=== PATIENT | female | born 1990 | race Caucasian/White ===

== ENCOUNTER → 2016-06-02 | Outpatient (CLI) | payer MEDICAID | LOC: MW.CHRC 13:27 | PROVIDERS: ATTEND Family Medicine | DX: N92.6 Irregular menstruation, unspecified (principal) | CPT/HCPCS: 36415; 84702 ==

== ENCOUNTER 2016-06-07 11:34 | Emergency (ER) | payer MEDICAID ==
--- NOTE | 2016-06-07 11:59 | EDM.PDOC ---
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 Patient indicates that she noticed vaginal bleeding after voiding this morning and when she wiped it was on the toilet paper and it was dark old blood. Patient indicates that she recently saw her OB and she was determined to be approximately 6 weeks . Patient denies cramping or or any abdominal pain at this time.] Review of systems: As per history of present illness and below otherwise all systems reviewed and negative. Past medical history: As per history of present illness and as reviewed below otherwise noncontributory. Surgical history: As per history of present illness and as reviewed below otherwise noncontributory. Social history: No reported history of drug or alcohol abuse. Family history: As per history of present illness and as reviewed below otherwise noncontributory. Physical exam: HEENT: Atraumatic, normocephalic, pupils reactive, negative for conjunctival pallor or scleral icterus, mucous membranes moist, throat clear, neck supple, nontender, trachea midline. Lungs: Clear to auscultation, breath sounds equal bilaterally, chest nontender. Heart: S1S2, regular, negative for clicks, rubs, or JVD. Abdomen: Soft, nondistended, nontender. Negative for masses or hepatosplenomegaly. Negative for costovertebral tenderness. Pelvis: Stable nontender. Genitourinary: Deferred. Rectal: Deferred. Extremities: Atraumatic, negative for cords or calf pain. Neurovascular unremarkable. Neuro: Awake, alert, oriented. Cranial nerves II through XII unremarkable. Cerebellum unremarkable. Motor and sensory unremarkable throughout. Exam nonfocal. Diagnostics: [CBC CMP Rh, HCG quantitative, hCG qualitative, UA transvaginal ultrasound] Therapeutics: [] Impression: [Threatened ] Plan: [Pelvic rest for 6 weeks, followup with primary care/OB] Definitive disposition and diagnosis as appropriate pending reevaluation and review of above. no pain Pain Score (Numeric/FACES): 0 - Related Data Allergies Allergy/AdvReac Type Severity Reaction Status Date / Time No Known Allergies Allergy Verified 06/07/16 11:44 Home Meds: Home Meds B6/FA/B12/Co Q10/Herb No.225 [Healthy Heart Complex Tablet] 25 mg PO Q6HR [History] Methadone 5 mg PO TID 06/07/16 [History] Vit #108/Iron/FA [ One Tablet] 1 tab PO DAILY 06/07/16 [History ] oxyCODONE HCl/Acetaminophen [Percocet 7.5-325 mg Tablet] 1 tab PO Q6HR 06/07/16 [History] ED ROS GENERAL - Review of Systems Review Of Systems: See Below (See history of present illness) ED EXAM, GENERAL - Physical Exam Exam: See Below (See history of present illness) Course - Vital Signs Last Recorded V/S: Last Vital Signs Temp 36.9 C 06/07/16 11:46 Pulse 70 06/07/16 11:46 Resp 16 06/07/16 11:46 BP 131/90 06/07/16 11:46 Pulse Ox 98 06/07/16 11:46 - Orders/Labs/Meds Orders: Active Orders 24 hr Category Date Time Status CULTURE URINE [RM] Stat Lab 06/07/16 13:50 Received UA W/MICROSCOPIC [URIN] Stat Lab 06/07/16 13:50 Results Labs: Laboratory Tests 06/07/16 06/07/16 06/07/16 Range/Units 11:57 11:57 11:57 WBC 11.23 H (4.0-11.0) K/uL RBC 4.57 (4.30-5.90) M/uL Hgb 13.4 (12.0-16.0) g/dL Hct 39.7 (36.0-46.0) % MCV 86.9 (80.0-98.0) fL MCH 29.3 (27.0-32.0) pg MCHC 33.8 (31.0-37.0) g/dL RDW Std Deviation 39.2 (28.0-62.0) fl RDW Coeff of Francie 12 (11.0-15.0) % Plt Count 269 (150-400) K/uL MPV 9.50 (7.40-12.00) fL Neut % (Auto) 62.1 (48.0-80.0) % Lymph % (Auto) 32.0 (16.0-40.0) % [place] % (Auto) 4.8 (0.0-15.0) % Eos % (Auto) 0.7 (0.0-7.0) % Baso % (Auto) 0.4 (0.0-1.5) % Neut # (Auto) 7.0 H (1.4-5.7) K/uL Lymph # (Auto) 3.6 H (0.6-2.4) K/uL [place] # (Auto) 0.5 (0.0-0.8) K/uL Eos # (Auto) 0.1 (0.0-0.7) K/uL Baso # (Auto) 0.0 (0.0-0.1) K/uL Nucleated RBC % 0.0 /100WBC Nucleated RBCs # 0 K/uL HCG, Quant 220765.1 mIU/mL Urine Color Urine Appearance Urine pH (5.0-8.0) Ur Specific [place] (1.001-1.035) Urine Protein (NEGATIVE) mg/dL Urine Glucose (UA) (NEGATIVE) mg/dL Urine Ketones (NEGATIVE) mg/dL Urine Occult Blood (NEGATIVE) Urine Nitrite (NEGATIVE) Urine Bilirubin (NEGATIVE) Urine Urobilinogen (<2.0) EU/dL Ur Leukocyte Esterase (NEGATIVE) Blood Type O POSITIVE 06/07/16 Range/Units 13:50 WBC (4.0-11.0) K/uL RBC (4.30-5.90) M/uL Hgb (12.0-16.0) g/dL Hct (36.0-46.0) % MCV (80.0-98.0) fL MCH (27.0-32.0) pg MCHC (31.0-37.0) g/dL RDW Std Deviation (28.0-62.0) fl RDW Coeff of Francie (11.0-15.0) % Plt Count (150-400) K/uL MPV (7.40-12.00) fL Neut % (Auto) (48.0-80.0) % Lymph % (Auto) (16.0-40.0) % [place] % (Auto) (0.0-15.0) % Eos % (Auto) (0.0-7.0) % Baso % (Auto) (0.0-1.5) % Neut # (Auto) (1.4-5.7) K/uL Lymph # (Auto) (0.6-2.4) K/uL [place] # (Auto) (0.0-0.8) K/uL Eos # (Auto) (0.0-0.7) K/uL Baso # (Auto) (0.0-0.1) K/uL Nucleated RBC % /100WBC Nucleated RBCs # K/uL HCG, Quant mIU/mL Urine Color YELLOW Urine Appearance CLEAR Urine pH 7.0 (5.0-8.0) Ur Specific [place] 1.010 (1.001-1.035) Urine Protein NEGATIVE (NEGATIVE) mg/dL Urine Glucose (UA) NEGATIVE (NEGATIVE) mg/dL Urine Ketones NEGATIVE (NEGATIVE) mg/dL Urine Occult Blood NEGATIVE (NEGATIVE) Urine Nitrite NEGATIVE (NEGATIVE) Urine Bilirubin NEGATIVE (NEGATIVE) Urine Urobilinogen 0.2 (<2.0) EU/dL Ur Leukocyte Esterase NEGATIVE (NEGATIVE) Blood Type Departure - Departure Time of Disposition: 14:14 Disposition: Home, Self-Care 01 Condition: good Clinical Impression: Threatened Forms: ED Department Discharge Additional Instructions: The following information is given to patients seen in the emergency department who are being discharged to home. This information is to outline your options for follow-up care. We provide all patients seen in our emergency department with a follow-up referral. The need for follow-up, as well as the timing and circumstances, are variable depending upon the specifics of your emergency department visit. If you don't have a primary care physician on staff, we will provide you with a referral. We always advise you to contact your personal physician following an emergency department visit to inform them of the circumstance of the visit and for follow-up with them and/or the need for any referrals to a consulting specialist. The emergency department will also refer you to a specialist when appropriate. This referral assures that you have the opportunity for follow-up care with a specialist. All of these measure are taken in an effort to provide you with optimal care, which includes your follow-up. Under all circumstances we always encourage you to contact your private physician who remains a resource for coordinating your care. When calling for follow-up care, please make the office aware that this follow-up is from your recent emergency room visit. If for any reason you are refused follow-up, please contact the [facility] Emergency Department at and asked to speak to the emergency department charge nurse. Followup with PCP in one to 2 days Pelvic rest for 6 weeks Return to ED as needed as discussed - My Orders Last 24 Hours: My Active Orders 06/07/16 13:50 CULTURE URINE [RM] Stat UA W/MICROSCOPIC [URIN] Stat - Assessment/Plan Last 24 Hours: My Active Orders 06/07/16 13:50 CULTURE URINE [RM] Stat UA W/MICROSCOPIC [URIN] Stat
--- NOTE | 2016-06-07 12:50 | US ---
EXAMINATION: Transvaginal ultrasound HISTORY: Bleeding COMPARISON: None TECHNIQUE: Grayscale, color Doppler, spectral Doppler, and M-mode images obtained transvaginally. FINDINGS: There is a twin intrauterine identified. Please appear to have separate gestatio nal sacs. Twin A which is noted on the maternal right demonstrates a heart rate of 136 bpm. The little traverse n-rump length measures 0.7 cm giving an estimated gestational age at 6 weeks and 4 days and estimate d date of delivery at 01/27/2017. Twin B demonstrates a pole and yolk sac however definite car diac activity is not identified. The crown-rump length of twin B measures 0.46 cm giving an estimate d gestational age at 6 weeks and 2 days. There is a minimal hypoechoic crescent adjacent to the gest ational sac of twin B which could represent a minimal subchorionic hemorrhage. IMPRESSION: 1. Twin intrauterine . 2. Twin A, demonstrates a normal heart rate. No definite cardiac activity is yet identified within t win B. Short-term follow-up may be beneficial.
[2016-06-07 14:40] VITALS: BP 108/66
== END 2016-06-07 14:38 | disposition home or self-care (01) ==
LOC: MW.ED 11:34
DX: O20.0 Threatened abortion (principal); Z79.899 Other long term (current) drug therapy
CPT/HCPCS: 36415; 76801; 76801-26; 81001; 84702; 85025; 86900; 86901; 87086; 99283; 99284-25

== ENCOUNTER 2016-06-17 21:05 | Emergency (ER) | payer MEDICAID ==
--- NOTE | 2016-06-17 21:37 | EDM.PDOC ---
ED HPI ENT - General Chief Complaint: ENT Problem Stated Complaint: PT HAS SORE THROAT,RUNNING NOSE Time Seen by Provider: 06/17/16 21:20 Source of Information: Reports: Patient History Limitations: Reports: No limitations - History of Present Illness INITIAL COMMENTS - FREE TEXT/NARRATIVE: HISTORY AND PHYSICAL: History of present illness: [Patient comes to the emergency room complaining of runny nose cough and sore throat since last night. 2 coworkers have recently been diagnosed with mono. patient is concerned that she may accidentally drank out of one of her water bottles and she may also have it. Throat is very sore. Her sinuses feel full and she is having difficulty breathing out of her nose. Green nasal discharge has been present. She denies earaches, neck pain, and shortness of breath. No headaches. Her worst symptom is her sore throat. She would like to be tested for mono. No abdominal pain, nausea or vomiting. She is approximately 9 weeks with twins. This is her first . LMP April 18 2016. She isn' t sure which bnec-bnt-birspib medications she is allowed to take while . She follows regularly with Dr. Sharp. History of back surgery for scoliosis.] Review of systems: As per history of present illness and below otherwise all systems reviewed and negative. Past medical history: As per history of present illness and as reviewed below otherwise noncontributory. Surgical history: As per history of present illness and as reviewed below otherwise noncontributory. Social history: No reported history of drug or alcohol abuse. Family history: As per history of present illness and as reviewed below otherwise noncontributory. Physical exam: HEENT: Atraumatic, normocephalic. TMs are pearly luo and without effusion bilaterally. Nares are patent. Small amount of nasal discharge present bilaterally. mucous membranes moist. Posterior oropharynx is erythematous but no swelling or exudate is noted. Mildly shoddy and tender left anterior cervical lymph nodes. neck supple. Lungs: Clear to auscultation, breath sounds equal bilaterally, chest nontender. No wheezing crackles or rales. Heart: S1S2, regular rate rhythm. negative for clicks, rubs, or JVD. Abdomen: Soft, nondistended, nontender. Pelvis: Stable nontender. Genitourinary: Deferred. Rectal: Deferred. Extremities: Atraumatic, no swelling or cyanosis. Neurovascular unremarkable. Neuro: Awake, alert, oriented. Cranial nerves II through XII unremarkable. Motor and sensory unremarkable throughout. Exam nonfocal. Diagnostics: [[place], strep swab] Impression: [Viral cold] Plan: [Test results are reviewed with patient: Strep swab is negative. [place] screen is negative. Discussed with patient that her symptoms are viral in nature. She is to push fluids get plenty of rest. Followup with her primary care or be for recommendations on other [id number]-[id number] medications that she can take. ] Definitive disposition and diagnosis as appropriate pending reevaluation and review of above. - Related Data Allergies/ADRs: Allergies Allergy/AdvReac Type Severity Reaction Status Date / Time No Known Allergies Allergy Verified 06/17/16 21:19 Home Meds: Home Meds B6/FA/B12/Co Q10/Herb No.225 [Healthy Heart Complex Tablet] 25 mg PO Q6HR [History] Methadone 5 mg PO TID 06/07/16 [History] Vit #108/Iron/FA [ One Tablet] 1 tab PO DAILY 06/07/16 [History ] oxyCODONE HCl/Acetaminophen [Percocet 7.5-325 mg Tablet] 1 tab PO Q6HR 06/07/16 [History] Past Medical History HEENT History: Reports: None Cardiovascular History: Reports: None Respiratory History: Reports: None Gastrointestinal History: Reports: None Genitourinary History: Reports: None INDUSTRIAL ENG History: Reports: Musculoskeletal History: Reports: None Neurological History: Reports: None Psychiatric History: Reports: Anxiety Endocrine/Metabolic History: Reports: None Hematologic History: Reports: None Oncologic (Cancer) History: Reports: None Dermatologic History: Reports: None - Infectious Disease History Infectious Disease History: Reports: Human papilloma virus (HPV) Social & Family History - Family History Family Medical History: Noncontributory - Tobacco Use Smoking Status *Q: Current Every Day Smoker Years of Tobacco use: 10 Packs/Tins Daily: 0.5 - Caffeine Use Caffeine Use: Reports: None - Recreational Drug Use Recreational Drug Use: No ED ROS ENT - Review of Systems Review Of Systems: ROS reveals no pertinent complaints other than HPI. ED EXAM, ENT - Physical Exam Exam: See Below Course - Vital Signs Last Recorded V/S: Last Vital Signs Temp 97.6 F 06/17/16 21:20 Pulse 63 06/17/16 21:20 Resp 18 06/17/16 21:20 BP 135/73 06/17/16 21:20 Pulse Ox 98 06/17/16 21:20 - Orders/Labs/Meds Orders: Active Orders 24 hr Category Date Time Status CULTURE STREP A CONFIRMATION [RM] Stat Lab 06/17/16 21:42 Results STREP SCRN A RAPID W CULT CONF [RM] Stat Lab 06/17/16 21:42 Results Labs: Laboratory Tests 06/17/16 Range/Units 21:47 Monoscreen NEGATIVE (NEG) Departure - Departure Time of Disposition: 22:15 Disposition: Home, Self-Care 01 Condition: good Clinical Impression: Common cold virus Referrals: PCP,None [Primary Care Provider] - Forms: ED Department Discharge Additional Instructions: The following information is given to patients seen in the emergency department who are being discharged to home. This information is to outline your options for follow-up care. We provide all patients seen in our emergency department with a follow-up referral. The need for follow-up, as well as the timing and circumstances, are variable depending upon the specifics of your emergency department visit. If you don't have a primary care physician on staff, we will provide you with a referral. We always advise you to contact your personal physician following an emergency department visit to inform them of the circumstance of the visit and for follow-up with them and/or the need for any referrals to a consulting specialist. The emergency department will also refer you to a specialist when appropriate. This referral assures that you have the opportunity for follow-up care with a specialist. All of these measure are taken in an effort to provide you with optimal care, which includes your follow-up. Under all circumstances we always encourage you to contact your private physician who remains a resource for coordinating your care. When calling for follow-up care, please make the office aware that this follow-up is from your recent emergency room visit. If for any reason you are refused follow-up, please contact the [facility] emergency department at and asked to speak to the emergency department charge nurse. [facility] [address] [place] [phone] Your tests were negative for mono and strep. Followup with your primary care provider at the clinic listed above. Tylenol and Benadryl is safe to take during . Followup with your primary care or your OB for more recommendations. Get plenty of rest, push fluids. Return to ER as needed and as discussed. - My Orders Last 24 Hours: My Active Orders 06/17/16 21:42 CULTURE STREP A CONFIRMATION [RM] Stat STREP SCRN A RAPID W CULT CONF [RM] Stat - Assessment/Plan Last 24 Hours: My Active Orders 06/17/16 21:42 CULTURE STREP A CONFIRMATION [RM] Stat STREP SCRN A RAPID W CULT CONF [RM] Stat
[2016-06-17 22:30] VITALS: BP 127/71
== END 2016-06-17 22:28 | disposition home or self-care (01) ==
LOC: MW.ED 21:05
DX: O99.511 Diseases of the respiratory system complicating pregnancy, first trimester (principal); J00 Acute nasopharyngitis [common cold]; O99.351 Diseases of the nervous system complicating pregnancy, first trimester; F17.210 Nicotine dependence, cigarettes, uncomplicated; O99.341 Other mental disorders complicating pregnancy, first trimester; F41.9 Anxiety disorder, unspecified; Z3A.09 9 weeks gestation of pregnancy
CPT/HCPCS: 36415; 86308; 87081; 87880; 99283

== ENCOUNTER 2016-06-19 01:35 | Emergency (ER) | payer MEDICAID ==
--- NOTE | 2016-06-19 02:10 | EDM.PDOC ---
ED HISTORY OF PRESENT ILLNESS - General Chief Complaint: Respiratory Problem Stated Complaint: COLD Time Seen by Provider: 06/19/16 01:45 Source of Information: Reports: Patient History Limitations: Reports: No limitations - History of Present Illness INITIAL COMMENTS - FREE TEXT/NARRATIVE: HISTORY AND PHYSICAL: History of present illness: [25-year-old female seen last night and diagnosed with a viral syndrome now returns tonight because she thinks she needs an antibiotic because her viral symptoms are worse. Patient states she has body aches sore throat dry cough runny nose with clear discharge. Symptoms are worse compared with yesterday. No headache or stiff neck. Patient requesting antibiotic but she's not sure for what.] Review of systems: As per history of present illness and below otherwise all systems reviewed and negative. Past medical history: As per history of present illness and as reviewed below otherwise noncontributory. Surgical history: As per history of present illness and as reviewed below otherwise noncontributory. Social history: No reported history of drug or alcohol abuse. Family history: As per history of present illness and as reviewed below otherwise noncontributory. Physical exam: HEENT: Atraumatic, normocephalic, pupils reactive, negative for conjunctival pallor or scleral icterus, mucous membranes moist, throat clear, neck supple, nontender, trachea midline. Clear rhinorrhea Lungs: Clear to auscultation, breath sounds equal bilaterally, chest nontender. Heart: S1S2, regular, negative for clicks, rubs, or JVD. Abdomen: Soft, nondistended, nontender. Negative for masses or hepatosplenomegaly. Negative for costovertebral tenderness. Pelvis: Stable nontender. Genitourinary: Deferred. Rectal: Deferred. Extremities: Atraumatic, negative for cords or calf pain. Neurovascular unremarkable. Neuro: Awake, alert, oriented. Cranial nerves II through XII unremarkable. Cerebellum unremarkable. Motor and sensory unremarkable throughout. Exam nonfocal. Diagnostics: [] Therapeutics: [] Impression: [] Plan: [Signs and symptoms consistent with classic viral syndrome symptoms. Discussed with patient the viral illness but not benefit from antibiotic treatment she ahas no evidence of focal bacterial infection.] Supple neck well-appearing clear rhinorrhea. No further workup or treatment indicated. Patient agrees with outpatient followup. Strict return precautions given Definitive disposition and diagnosis as appropriate pending reevaluation and review of above. - Related Data Allergies/ADRs: Allergies Allergy/AdvReac Type Severity Reaction Status Date / Time No Known Allergies Allergy Verified 06/19/16 01:38 Home Meds: Home Meds B6/FA/B12/Co Q10/Herb No.225 [Healthy Heart Complex Tablet] 25 mg PO Q6HR [History] Methadone 5 mg PO TID 06/07/16 [History] Vit #108/Iron/FA [ One Tablet] 1 tab PO DAILY 06/07/16 [History ] oxyCODONE HCl/Acetaminophen [Percocet 7.5-325 mg Tablet] 1 tab PO Q6HR 06/07/16 [History] Past Medical History HEENT History: Reports: None Cardiovascular History: Reports: None Respiratory History: Reports: None Gastrointestinal History: Reports: None Genitourinary History: Reports: None 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: Musculoskeletal History: Reports: None Other Musculoskeletal History: Scoliosis Neurological History: Reports: None Psychiatric History: Reports: Anxiety Endocrine/Metabolic History: Reports: None Hematologic History: Reports: None Immunologic History: Reports: None Oncologic (Cancer) History: Reports: None Dermatologic History: Reports: None - Infectious Disease History Infectious Disease History: Reports: None - Past Surgical History Head Surgeries/Procedures: Reports: None Respiratory Surgical History: Reports: None GI Surgical History: Reports: None Social & Family History - Family History Family Medical History: Noncontributory - Tobacco Use Smoking Status *Q: Current Every Day Smoker Years of Tobacco use: 10 Packs/Tins Daily: 0.2 Second Hand Smoke Exposure: Yes - Caffeine Use Caffeine Use: Reports: None - Recreational Drug Use Recreational Drug Use: No ED ROS GENERAL - Review of Systems Review Of Systems: See Below (History of present illness) ED EXAM, GENERAL - Physical Exam Exam: See Below (History of present illness) Course - Vital Signs Last Recorded V/S: Last Vital Signs Temp 36.9 C 06/19/16 02:17 Pulse 63 06/19/16 02:17 Resp 16 06/19/16 02:17 BP 111/69 06/19/16 02:17 Pulse Ox 98 06/19/16 02:17 Departure - Departure Time of Disposition: 02:10 Disposition: Home, Self-Care 01 Condition: good Clinical Impression: viral syndrome Instructions: Upper Respiratory Infection, Adult, [id number] Referrals: Tee Sharp MD [Primary Care Provider] - Forms: ED Department Discharge
[2016-06-19 02:21] VITALS: BP 111/69
== END 2016-06-19 02:17 | disposition home or self-care (01) ==
LOC: MW.ED 01:35
DX: B34.9 Viral infection, unspecified (principal); F17.210 Nicotine dependence, cigarettes, uncomplicated; Z79.899 Other long term (current) drug therapy
CPT/HCPCS: 99282; 99283

== ENCOUNTER → 2016-07-01 | Outpatient (CLI) | payer MEDICAID ==
--- NOTE | 2016-07-01 15:54 | US ---
EXAMINATION: Twin obstetric ultrasound HISTORY: Twin COMPARISON: 06/07/2016 TECHNIQUE: Grayscale, color Doppler images obtained. FINDINGS: 2 gestational sacs are noted within the uterus. Gestation age demonstrates a heart rate of 153 bpm. Gestational sac a mean sac diameter is 4.7 cm. [place]-rump length measures 4.1 cm giving an estimated gestational age at 10 weeks and 6 days. Gestational sac B does not demonstrate a po le or yolk sac. The mean sac diameter of B is 2.5 cm. There is a moderate hypoechoic crescentic davide ection along the fundus of the uterus consistent with a subchorionic hemorrhage. IMPRESSION: 1. 2 gestational sacs identified, however there is only a single viable intrauterine ident ified. 2. The second gestational sac is empty and no pole is noted. 3. Moderate subchorionic hemorrhage noted.
== END | disposition home or self-care (01) ==
LOC: MW.CHOBGYN 11:11
PROVIDERS: ATTEND Advanced Practice Midwife
DX: Z36 Encounter for antenatal screening of mother (principal); Z34.91 Encounter for supervision of normal pregnancy, unspecified, first trimester
CPT/HCPCS: 76817; 76817-26

== ENCOUNTER 2016-07-06 21:32 | Emergency (ER) | payer MEDICAID ==
--- NOTE | 2016-07-06 22:17 | EDM.PDOC ---
ED HPI GENERAL MEDICAL PROBLEM - General Chief Complaint: General Stated Complaint: POSSIBLE STROKE CODE /11WEEKS Time Seen by Provider: 07/06/16 21:48 Source of Information: Reports: Patient - History of Present Illness INITIAL COMMENTS - FREE TEXT/NARRATIVE: She states that she is tired a lot. She works from 9 AM to 4 PM every day. He states that her landlord woke her up by knocking on her door. She felt somewhat confused initially she feels better now. No head trauma. No vomiting. No headache. She states that she wants a ultrasound for . She states she' s a little weeks . She insists on having a ultrasound of the fetus. No vaginal bleeding. No leakage of vaginal fluid no fever. No respiratory distress. epigastric pain Pain Score (Numeric/FACES): 6 - Related Data Allergies Allergy/AdvReac Type Severity Reaction Status Date / Time No Known Allergies Allergy Verified 07/06/16 21:52 Home Meds: Home Meds B6/FA/B12/Co Q10/Herb No.225 [Healthy Heart Complex Tablet] 25 mg PO Q6HR [History] Methadone 5 mg PO TID 06/07/16 [History] Vit #108/Iron/FA [ One Tablet] 1 tab PO DAILY 06/07/16 [History ] oxyCODONE HCl/Acetaminophen [Percocet 7.5-325 mg Tablet] 1 tab PO Q6HR 06/07/16 [History] Past Medical History HEENT History: Reports: None Cardiovascular History: Reports: None Respiratory History: Reports: None Gastrointestinal History: Reports: None Genitourinary History: Reports: None 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: Musculoskeletal History: Reports: None Other Musculoskeletal History: Scoliosis Neurological History: Reports: None Psychiatric History: Reports: Anxiety Endocrine/Metabolic History: Reports: None Hematologic History: Reports: None Immunologic History: Reports: None Oncologic (Cancer) History: Reports: None Dermatologic History: Reports: None - Infectious Disease History Infectious Disease History: Reports: None - Past Surgical History Head Surgeries/Procedures: Reports: None Respiratory Surgical History: Reports: None GI Surgical History: Reports: None Social & Family History - Family History Family Medical History: Noncontributory - Tobacco Use Smoking Status *Q: Current Every Day Smoker Years of Tobacco use: 10 Packs/Tins Daily: 0.3 Second Hand Smoke Exposure: Yes - Caffeine Use Caffeine Use: Reports: None - Recreational Drug Use Recreational Drug Use: No ED ROS GENERAL - Review of Systems Review Of Systems: ROS reveals no pertinent complaints other than HPI. (She does not use alcohol. She does not use illegal drugs.) Constitutional: Reports: other ED EXAM, GENERAL - Physical Exam Exam: See Below Free Text/Narrative:: She is alert. Normal speech. Normal mentation. Normal gait. Oriented x4 no facial droop. Abdomen soft and nontender. No audible heart tones by auscultation with doptone Course - Vital Signs Last Recorded V/S: Last Vital Signs Temp Pulse 88 07/06/16 23:21 Resp 18 07/06/16 23:21 BP 119/70 07/06/16 23:21 Pulse Ox 94 L 07/06/16 23:21 - Orders/Labs/Meds Orders: Active Orders 24 hr Category Date Time Status OB 1st Tri [facility] 1st Gest [US] Stat Exams 07/06/16 22:12 Taken Departure - Departure Time of Disposition: 23:14 Disposition: Home, Self-Care 01 Condition: good Clinical Impression: Fatigue, Intrauterine Instructions: First Trimester of , [id number] Referrals: PCP,None [Primary Care Provider] - Forms: ED Department Discharge Additional Instructions: We discussed the ultra sound result. She states that she was told that she had a twin with miscarriage of one twin. advised more rest recheck as needed. routine follow up with her prescription benefit specialist planned for . Andrew Ross MD - My Orders Last 24 Hours: My Active Orders 07/06/16 22:12 OB 1st Tri [facility] 1st Gest [US] Stat - Assessment/Plan Last 24 Hours: My Active Orders 07/06/16 22:12 OB 1st Tri [facility] 1st Gest [US] Stat
[2016-07-06 23:30] VITALS: BP 115/71
--- NOTE | 2016-07-07 15:51 | US ---
EXAM DATE: 07/06/16 PATIENT'S AGE: 25 Patient: MANE KUHN Facility: [place], [place] Site . Site : [id number] Study: US OB Pelvis [id number] 10:48:35 PM Ordering Physician: Cody Morales Final Report: INDICATION: Anxiety TECHNIQUE: Ultrasound OB pelvis transvaginal. Real time luo scale imaging of the pelvis was performed. COMPARISON: 07/01/2016 FINDINGS: Sonographic imaging demonstrates a single intrauterine gestation. The embryo demonstrates a regular cardiac rate measuring 153 beats per minute. The embryo` s crown rump length measurement of 50 mm corresponds to a gestational age of 11 weeks, 6 days. There are no gross abnormalities noted within the embryo at this early state of development. The placenta has not yet developed. There is a curvilinear fluid collection adjacent to the gestational sac which measures 3.7 x 1.7 cm. The internal echoes of this fluid collection seen on prior examination have resolved. The amount of fluid within the sac appears appropriate for gestational age. The cervix is not identified. The myometrium appears normal. The ovaries are not visualized. No significant ascites noted. IMPRESSION: 1. Single viable intrauterine with an estimated gestational age of 11 weeks, 6 days. 2. Fluid collection is seen adjacent to the gestational sac which has become more anechoic since prior examination. This is most likely due to a moderate to large subchorionic hemorrhage. Given its size, follow up ultrasound recommended to document resolution. Dictated by Anshul Mitchell MD @ 07/06/2016 10:57:53 PM Dictated by: Anshul Mitchell MD @ 07/06/2016 22:58:05 (Electronic Signature) Report Signed by Proxy and Original Signed Document filed in the Medical Record. SHANTEL
== END 2016-07-06 23:30 | disposition home or self-care (01) ==
LOC: MW.ED 21:32
DX: O99.89 Other specified diseases and conditions complicating pregnancy, childbirth and the puerperium (principal); R53.83 Other fatigue; Z79.899 Other long term (current) drug therapy; O99.331 Smoking (tobacco) complicating pregnancy, first trimester; F17.210 Nicotine dependence, cigarettes, uncomplicated; Z3A.11 11 weeks gestation of pregnancy
CPT/HCPCS: 76801; 76801-26; 99283; 99285-25

== ENCOUNTER → 2016-07-15 | Outpatient (CLI) | payer MEDICAID | END | disposition home or self-care (01) | LOC: MW.CHOBGYN 08:44 | PROVIDERS: ATTEND Advanced Practice Midwife | DX: Z34.90 Encounter for supervision of normal pregnancy, unspecified, unspecified trimester (principal) | CPT/HCPCS: 36415; 80305; 81003; 85025; 86592; 86762; 86803; 86850; 86900; 86901; 87086; 87340; 87389; 87491; 87591 ==

== ENCOUNTER 2016-10-30 19:59 | Emergency (ER) | payer MEDICAID ==
[2016-10-30 20:21] VITALS: BP 125/78
--- NOTE | 2016-10-30 21:02 | EDM.PDOC ---
ED HPI GENERAL MEDICAL PROBLEM - General Chief Complaint: Lower Extremity Injury/Pain Stated Complaint: SWELLING/PAIN IN CALVES AND ANKLES;27 WK PREG Time Seen by Provider: 10/30/16 20:05 Source of Information: Reports: Patient History Limitations: Reports: No Limitations - History of Present Illness INITIAL COMMENTS - FREE TEXT/NARRATIVE: History of present illness: [25-year-old female presenting with complaints of bilateral leg swelling. Patient is 27 weeks and is indicated that she has had this problem getting progressively worse over the last 2 weeks. Patient indicates her is well aware and has had her keeping her legs elevated above her heart as much as possible the swelling continues unabated and is now quite painful.] Review of systems: As per history of present illness and below otherwise all systems reviewed and negative. Past medical history: As per history of present illness and as reviewed below otherwise noncontributory. Surgical history: As per history of present illness and as reviewed below otherwise noncontributory. Social history: No reported history of drug or alcohol abuse. Family history: As per history of present illness and as reviewed below otherwise noncontributory. Physical exam: HEENT: Atraumatic, normocephalic, pupils reactive, negative for conjunctival pallor or scleral icterus, mucous membranes moist, throat clear, neck supple, nontender, trachea midline. Lungs: Clear to auscultation, breath sounds equal bilaterally, chest nontender. Heart: S1S2, regular, negative for clicks, rubs, or JVD. Abdomen: Soft, nondistended, nontender. Negative for masses or hepatosplenomegaly. Negative for costovertebral tenderness. Pelvis: Stable nontender. Genitourinary: Deferred. Rectal: Deferred. Extremities: Atraumatic, negative for cords or calf pain. Neurovascular unremarkable. Bilateral lower extremities from the knee down with 3+ nonpitting edema Neuro: Awake, alert, oriented. Cranial nerves II through XII unremarkable. Cerebellum unremarkable. Motor and sensory unremarkable throughout. Exam nonfocal. UA negative for protein and positive for infection Diagnostics: [UA, CBC, CMP] Therapeutics: [] Impression: [UTI] Plan: [Macrobid] Definitive disposition and diagnosis as appropriate pending reevaluation and review of above. Bilateral Lower Leg Pain Score (Numeric/FACES): 8 - Related Data Allergies Allergy/AdvReac Type Severity Reaction Status Date / Time No Known Allergies Allergy Verified 10/30/16 20:13 Home Meds: Home Meds B6/FA/B12/Co Q10/Herb No.225 [Healthy Heart Complex Tablet] 25 mg PO Q6HR [History] Methadone 5 mg PO TID 06/07/16 [History] Vit #108/Iron/FA [ One Tablet] 1 tab PO DAILY 06/07/16 [History ] oxyCODONE HCl/Acetaminophen [Percocet 7.5-325 mg Tablet] 7.5 - 325 mg PO Q6HR [History] Past Medical History HEENT History: Reports: None Cardiovascular History: Reports: None Respiratory History: Reports: None Gastrointestinal History: Reports: None Genitourinary History: Reports: None 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: Musculoskeletal History: Reports: None Other Musculoskeletal History: Scoliosis Neurological History: Reports: None Psychiatric History: Reports: Anxiety Endocrine/Metabolic History: Reports: None Hematologic History: Reports: None Immunologic History: Reports: None Oncologic (Cancer) History: Reports: None Dermatologic History: Reports: None - Infectious Disease History Infectious Disease History: Reports: None - Past Surgical History Head Surgeries/Procedures: Reports: None Respiratory Surgical History: Reports: None GI Surgical History: Reports: None Social & Family History - Family History Family Medical History: Noncontributory - Tobacco Use Smoking Status *Q: Current Every Day Smoker Years of Tobacco use: 10 Packs/Tins Daily: 0.3 Second Hand Smoke Exposure: Yes - Caffeine Use Caffeine Use: Reports: None - Recreational Drug Use Recreational Drug Use: No Review of Systems - Review of Systems Review Of Systems: See Below (History of present illness) ED EXAM, GENERAL - Physical Exam Exam: See Below (See history of present illness) Course - Vital Signs Last Recorded V/S: Last Vital Signs Temp 35.9 C 10/30/16 20:10 Pulse 71 10/30/16 20:10 Resp 18 10/30/16 20:10 BP 125/78 10/30/16 20:10 Pulse Ox 97 10/30/16 20:10 - Orders/Labs/Meds Orders: Active Orders 24 hr Category Date Time Status Heart Tones [ Heart Rate] [RC] Click To Edit Care 10/30/16 20:26 Ordered B-TYPE NATRIURETIC PEPTIDE,BNP [CHEM] Stat Lab 10/30/16 20:24 Ordered CBC WITH AUTO DIFF [HEME] Stat Lab 10/30/16 20:24 Ordered COMPREHENSIVE METABOLIC PN,CMP [CHEM] Stat Lab 10/30/16 20:24 Ordered UA W/MICROSCOPIC [URIN] Stat Lab 10/30/16 20:23 Uncollected Departure - Departure Time of Disposition: 21:26 Disposition: Home, Self-Care 01 Condition: Good Clinical Impression: UTI (urinary tract infection) - Discharge Information Forms: ED Department Discharge Additional Instructions: The following information is given to patients seen in the emergency department who are being discharged to home. This information is to outline your options for follow-up care. We provide all patients seen in our emergency department with a follow-up referral. The need for follow-up, as well as the timing and circumstances, are variable depending upon the specifics of your emergency department visit. If you don't have a primary care physician on staff, we will provide you with a referral. We always advise you to contact your personal physician following an emergency department visit to inform them of the circumstance of the visit and for follow-up with them and/or the need for any referrals to a consulting specialist. The emergency department will also refer you to a specialist when appropriate. This referral assures that you have the opportunity for follow-up care with a specialist. All of these measure are taken in an effort to provide you with optimal care, which includes your follow-up. Under all circumstances we always encourage you to contact your private physician who remains a resource for coordinating your care. When calling for follow-up care, please make the office aware that this follow-up is from your recent emergency room visit. If for any reason you are refused follow-up, please contact the [facility] Emergency Department at and asked to speak to the emergency department charge nurse. Take medication as directed Follow-up with your PCP in 2-3 days Return to ED as needed as discussed - My Orders Last 24 Hours: My Active Orders 10/30/16 20:23 UA W/MICROSCOPIC [URIN] Stat 10/30/16 20:24 B-TYPE NATRIURETIC PEPTIDE,BNP [CHEM] Stat CBC WITH AUTO DIFF [HEME] Stat COMPREHENSIVE METABOLIC PN,CMP [CHEM] Stat 10/30/16 20:26 Heart Tones [ Heart Rate] [RC] Click To Edit - Assessment/Plan Last 24 Hours: My Active Orders 10/30/16 20:23 UA W/MICROSCOPIC [URIN] Stat 10/30/16 20:24 B-TYPE NATRIURETIC PEPTIDE,BNP [CHEM] Stat CBC WITH AUTO DIFF [HEME] Stat COMPREHENSIVE METABOLIC PN,CMP [CHEM] Stat 10/30/16 20:26 Heart Tones [ Heart Rate] [RC] Click To Edit
[2016-10-30 21:07] LABS: CHLORIDE,CL 106 mmol/L (98-110); SODIUM,NA 136 mmol/L (136-146)
== END 2016-10-30 22:20 | disposition home or self-care (01) ==
LOC: MW.ED 19:59
DX: O23.42 Unspecified infection of urinary tract in pregnancy, second trimester (principal); O99.332 Smoking (tobacco) complicating pregnancy, second trimester; F17.210 Nicotine dependence, cigarettes, uncomplicated; Z3A.27 27 weeks gestation of pregnancy
CPT/HCPCS: 36415; 80053; 81001; 83880; 85025; 99282; 99284

== ENCOUNTER 2016-11-15 07:00 | Emergency (ER) | payer MEDICAID ==
[2016-11-15] MEDS ORDERED: Famotidine 20 MG/2 ML SDV IVPUSH ONE (07:22)
[2016-11-15] MEDS ORDERED: Sodium Chloride 0.9% 10 ML Syringe FLUSH PRN (07:22)
[2016-11-15] MEDS ORDERED: Sodium Chloride 0.9% 1,000 ML IV ONE (07:22)
[2016-11-15] MEDS ORDERED: Ondansetron 4 MG/2 ML SDV IVPUSH ONE (07:22)
[2016-11-15] MEDS ORDERED: Sodium Chloride 0.9% 2.5 ML Syringe FLUSH PRN (07:22)
[2016-11-15] MEDS ORDERED: Morphine 2 MG/ML Syringe IVPUSH ONE (07:22)
--- NOTE | 2016-11-15 07:26 | EDM.PDOC ---
ED HPI GENERAL MEDICAL PROBLEM - General Chief Complaint: Chest Pain Stated Complaint: VOMITING, CHEST PAIN Time Seen by Provider: 11/15/16 07:12 - History of Present Illness INITIAL COMMENTS - FREE TEXT/NARRATIVE: HISTORY AND PHYSICAL: History of present illness: The patient is a 18-year-old female who is 30 weeks and follows in our clinic with Jo Ann Arriaza and also has a history of chronic spine pain for which she is managing her family practice clinic with methadone and oxycodone and presents with complaints of pain to the left side of her sternum that started suddenly his morning waking her from sleep. The patient says she had a normal day yesterday without any trauma or excessive activity and had no GI complaints of nausea vomiting abdominal pain chest pain or shortness of breath. She says that after the pain woke her from sleep she felt very nauseated and felt like she had "heartburn" and had 6-7 episodes of vomiting which was initially clear and then bilious. There was no black or bloody vomitus. She has never had acid reflux or stomach problems. As far as the she has had no complications and she has had no abdominal pain pelvic pain vaginal bleeding and she says the baby has had good movement. She is a one para 0. Her due date is January 25. The pain in her chest does not radiate and is centered just to the left of the sternum and does not involve the breast. She has no shortness of breath fever chills upper respiratory symptoms such as cough runny nose or sore throat. She has chronic back pain but this discomfort in the chest does not radiate to her back. It also does not radiate to her jaw or arms. She did not take anything at home for the pain. She is also concerned because when she was vomiting she said that she passed some mucus from her vagina and she took a picture of it. Review of systems: As per history of present illness and below otherwise all systems reviewed and negative. Past medical history: As per history of present illness and as reviewed below otherwise noncontributory. Surgical history: As per history of present illness and as reviewed below otherwise noncontributory. Social history: No reported history of drug or alcohol abuse. Family history: As per history of present illness and as reviewed below otherwise noncontributory. Physical exam: Gen.: Well-developed well-nourished female who has obvious gravid uterus and is nontoxic and speaking clearly and easily. Vital signs of been reviewed by me. HEENT: Atraumatic, normocephalic, pupils reactive, negative for conjunctival pallor or scleral icterus, mucous membranes moist, throat clear, neck supple, nontender, trachea midline. Lungs: Clear to auscultation, breath sounds equal bilaterally, chest with reproducible tenderness to the left of the sternum without defects crepitus deformities or swelling. I am able to reproduce the pain when I palpate. When the patient moves her arm she also can reproduce the pain. Heart: S1S2, regular, negative for clicks, rubs, or JVD. Abdomen: Soft, nondistended, nontender. Uterus is gravid and soft and there is specifically no epigastric right upper or left upper quadrant tenderness. Negative for masses or hepatosplenomegaly. Negative for costovertebral tenderness. Pelvis: Stable nontender. Genitourinary: Deferred. Rectal: Deferred. Extremities: Atraumatic, negative for cords or calf pain. Neurovascular unremarkable. There is no pedal edema or leg asymmetry Neuro: Awake, alert, oriented. Cranial nerves II through XII unremarkable. Cerebellum unremarkable. Motor and sensory unremarkable throughout. Exam nonfocal. Diagnostics: EKG CBC CMP INR amylase lipase troponin UA. CTA chest Labor and delivery was contacted to evaluate the patient from a standpoint Therapeutics: IV O2 monitor IV fluids Zofran Pepcid morphine Patient is aware of all testing results and labor and delivery has done an NST and evaluation here and is cleared her from a standpoint. They have contacted Jo Ann Arriaza about this case and the patient has follow-up on with her. I've encouraged the patient to keep that follow-up appointment and to avoid spicy foods fatty foods and caffeine. I will give the patient Zofran for home and advised [id number] pain medication in addition to her prescribed medications. She tells me that she has run out of her methadone and I advised her to call Dr. cardoza tomorrow for refill advice. Advised on reasons to return to the ED. Impression: Left chest wall pain stable, vomiting resolved, third trimester stable Definitive disposition and diagnosis as appropriate pending reevaluation and review of above. Middle Chest Pain Score (Numeric/FACES): 6 - Related Data Allergies Allergy/AdvReac Type Severity Reaction Status Date / Time No Known Allergies Allergy Verified 11/15/16 07:24 Home Meds: Home Meds B6/FA/B12/Co Q10/Herb No.225 [Healthy Heart Complex Tablet] 25 mg PO Q6HR [History] Methadone 5 mg PO TID 06/07/16 [History] Vit #108/Iron/FA [ One Tablet] 1 tab PO DAILY 06/07/16 [History ] Cephalexin [Keflex] 500 mg PO BID #20 capsule 10/30/16 [Rx] Nitrofurantoin Monohyd/M-Cryst [Macrobid 100 mg Capsule] 100 mg PO BID #20 capsule 10/30/16 [Rx] oxyCODONE 10 mg PO Q12HR 11/15/16 [History] Past Medical History - Past Health History Medical/Surgical History: Denies Medical/Surgical History HEENT History: Reports: None Cardiovascular History: Reports: None Respiratory History: Reports: None Gastrointestinal History: Reports: None Genitourinary History: Reports: 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: Musculoskeletal History: Reports: None Other Musculoskeletal History: Scoliosis Neurological History: Reports: None Psychiatric History: Reports: Anxiety Endocrine/Metabolic History: Reports: None Hematologic History: Reports: None Immunologic History: Reports: None Oncologic (Cancer) History: Reports: None Dermatologic History: Reports: None - Infectious Disease History Infectious Disease History: Reports: None - Past Surgical History Head Surgeries/Procedures: Reports: None Respiratory Surgical History: Reports: None GI Surgical History: Reports: None Social & Family History - Family History Family Medical History: Noncontributory - Tobacco Use Smoking Status *Q: Current Every Day Smoker Years of Tobacco use: 10 Packs/Tins Daily: 0.3 Second Hand Smoke Exposure: Yes - Caffeine Use Caffeine Use: Reports: None - Recreational Drug Use Recreational Drug Use: No ED ROS GENERAL - Review of Systems Review Of Systems: ROS reveals no pertinent complaints other than HPI. ED EXAM, GENERAL - Physical Exam Exam: See Below (See dictation) Course - Vital Signs Last Recorded V/S: Last Vital Signs Temp 36.1 C 11/15/16 07:26 Pulse 56 L 11/15/16 07:26 Resp 18 11/15/16 07:26 BP 140/97 H 11/15/16 07:26 Pulse Ox 97 11/15/16 07:26 - Orders/Labs/Meds Orders: Active Orders 24 hr Category Date Time Status Cardiac Monitoring [RC] . DIRECTED Care 11/15/16 07:21 Active EKG Documentation Completion [RC] STAT Care 11/15/16 07:21 Active Oxygen Therapy, ED [RC] ASDIRECTED Care 11/15/16 07:21 Active Pulse Oximetry [RC] ASDIRECTED Care 11/15/16 07:21 Active Abdomen Ltd [US] Stat Exams 11/15/16 08:45 Taken Ang Chest [CT] Stat Exams 11/15/16 07:21 Taken Sodium Chloride 0.9% [Saline Flush] Med 11/15/16 07:22 Active 10 ml FLUSH ASDIRECTED PRN Sodium Chloride 0.9% [Saline Flush] Med 11/15/16 07:22 Active 2.5 ml FLUSH ASDIRECTED PRN Saline Lock Insert [OM.PC] Stat Oth 11/15/16 07:21 Ordered Medication Orders Sodium Chloride (Saline Flush) 10 ml FLUSH ASDIRECTED PRN PRN Reason: Keep Vein Open Last Admin: 11/15/16 08:22 Dose: 10 ml Sodium Chloride (Saline Flush) 2.5 ml FLUSH ASDIRECTED PRN PRN Reason: Keep Vein Open Last Admin: 11/15/16 08:21 Dose: 2.5 ml Labs: Laboratory Tests 11/15/16 11/15/16 11/15/16 Range/Units 07:12 07:12 07:12 WBC 17.62 H (4.0-11.0) K/uL RBC 4.72 (4.30-5.90) M/uL Hgb 13.9 (12.0-16.0) g/dL Hct 40.2 (36.0-46.0) % MCV 85.2 (80.0-98.0) fL MCH 29.4 (27.0-32.0) pg MCHC 34.6 (31.0-37.0) g/dL RDW Std Deviation 42.2 (28.0-62.0) fl RDW Coeff of Francie 14 (11.0-15.0) % Plt Count 218 (150-400) K/uL MPV 10.50 (7.40-12.00) fL Neut % (Auto) 72.3 (48.0-80.0) % Lymph % (Auto) 22.1 (16.0-40.0) % Berrien % (Auto) 5.1 (0.0-15.0) % Eos % (Auto) 0.3 (0.0-7.0) % Baso % (Auto) 0.2 (0.0-1.5) % Neut # (Auto) 12.7 H (1.4-5.7) K/uL Lymph # (Auto) 3.9 H (0.6-2.4) K/uL Ber[place] # (Auto) 0.9 H (0.0-0.8) K/uL Eos # (Auto) 0.1 (0.0-0.7) K/uL Baso # (Auto) 0.0 (0.0-0.1) K/uL Nucleated RBC % 0.0 /100WBC Nucleated RBCs # 0 K/uL INR 0.85 L (0.86-1.11) Sodium 137 (136-146) mmol/L Potassium 4.4 (3.5-5.1) mmol/L Chloride 108 (98-110) mmol/L Carbon Dioxide 19 L (21-31) mmol/L BUN 13 (6.0-23.0) mg/dL Creatinine 0.7 (0.6-1.5) mg/dL Est Cr Clr Drug Dosing TNP Estimated GFR (MDRD) > 60.0 ml/min Glucose 84 (60-110) mg/dL Calcium 9.3 (8.8-10.8) mg/dL Total Bilirubin 0.2 (0.1-1.5) mg/dL AST 14 (5-40) IU/L ALT 13 (8-54) IU/L Alkaline Phosphatase 117 (40-150) Troponin I (0.0-0.29) NG/ML Total Protein 6.6 (6.0-8.0) g/dL Albumin 3.4 L (3.5-5.0) g/dL Globulin 3.2 (2.0-3.5) g/dL Albumin/Globulin Ratio 1.1 L (1.3-2.8) Amylase 91 H (10-90) U/L Lipase 43 (7-80) U/L Urine Color Urine Appearance Urine pH (5.0-8.0) Ur Specific [place] (1.001-1.035) Urine Protein (NEGATIVE) mg/dL Urine Glucose (UA) (NEGATIVE) mg/dL Urine Ketones (NEGATIVE) mg/dL Urine Occult Blood (NEGATIVE) Urine Nitrite (NEGATIVE) Urine Bilirubin (NEGATIVE) Urine Urobilinogen (<2.0) EU/dL Ur Leukocyte Esterase (NEGATIVE) Urine RBC (0-2/HPF) Urine WBC (0-5/HPF) Ur Epithelial Cells (NONE-FEW) Urine Bacteria (NEGATIVE) 11/15/16 11/15/16 11/15/16 Range/Units 07:12 07:33 08:23 WBC (4.0-11.0) K/uL RBC (4.30-5.90) M/uL Hgb (12.0-16.0) g/dL Hct (36.0-46.0) % MCV (80.0-98.0) fL MCH (27.0-32.0) pg MCHC (31.0-37.0) g/dL RDW Std Deviation (28.0-62.0) fl RDW Coeff of Francie (11.0-15.0) % Plt Count (150-400) K/uL MPV (7.40-12.00) fL Neut % (Auto) (48.0-80.0) % Lymph % (Auto) (16.0-40.0) % Berrien % (Auto) (0.0-15.0) % Eos % (Auto) (0.0-7.0) % Baso % (Auto) (0.0-1.5) % Neut # (Auto) (1.4-5.7) K/uL Lymph # (Auto) (0.6-2.4) K/uL Berrien # (Auto) (0.0-0.8) K/uL Eos # (Auto) (0.0-0.7) K/uL Baso # (Auto) (0.0-0.1) K/uL Nucleated RBC % /100WBC Nucleated RBCs # K/uL INR (0.86-1.11) Sodium (136-146) mmol/L Potassium (3.5-5.1) mmol/L Chloride (98-110) mmol/L Carbon Dioxide (21-31) mmol/L BUN (6.0-23.0) mg/dL Creatinine (0.6-1.5) mg/dL Est Cr Clr Drug Dosing Estimated GFR (MDRD) ml/min Glucose (60-110) mg/dL Calcium (8.8-10.8) mg/dL Total Bilirubin (0.1-1.5) mg/dL AST (5-40) IU/L ALT (8-54) IU/L Alkaline Phosphatase (40-150) Troponin I < 0.10 (0.0-0.29) NG/ML Total Protein (6.0-8.0) g/dL Albumin (3.5-5.0) g/dL Globulin (2.0-3.5) g/dL Albumin/Globulin Ratio (1.3-2.8) Amylase (10-90) U/L Lipase (7-80) U/L Urine Color YELLOW YELLOW Urine Appearance SLT CLOUDY CLEAR Urine pH 6.5 6.5 (5.0-8.0) Ur Specific [place] 1.015 <= 1.005 (1.001-1.035) Urine Protein NEGATIVE NEGATIVE (NEGATIVE) mg/dL Urine Glucose (UA) NEGATIVE NEGATIVE (NEGATIVE) mg/dL Urine Ketones NEGATIVE NEGATIVE (NEGATIVE) mg/dL Urine Occult Blood NEGATIVE NEGATIVE (NEGATIVE) Urine Nitrite NEGATIVE NEGATIVE (NEGATIVE) Urine Bilirubin NEGATIVE NEGATIVE (NEGATIVE) Urine Urobilinogen 0.2 0.2 (<2.0) EU/dL Ur Leukocyte Esterase TRACE TRACE (NEGATIVE) Urine RBC 0-2 0-1 (0-2/HPF) Urine WBC 0-3 0-1 (0-5/HPF) Ur Epithelial Cells MODERATE FEW (NONE-FEW) Urine Bacteria 2+ H FEW (NEGATIVE) Meds: Medications Generic Name Dose Route Start Last Admin Trade Name Freq PRN Reason Stop Dose Admin Sodium Chloride 10 ml 11/15/16 07:22 11/15/16 08:22 Saline Flush FLUSH 10 ml ASDIRECTED PRN Administration Keep Vein Open Sodium Chloride 2.5 ml 11/15/16 07:22 11/15/16 08:21 Saline Flush FLUSH 2.5 ml ASDIRECTED PRN Administration Keep Vein Open Discontinued Medications Generic Name Dose Route Start Last Admin Trade Name Freq PRN Reason Stop Dose Admin Famotidine 20 mg 11/15/16 07:22 11/15/16 07:37 Pepcid IVPUSH 11/15/16 07:23 20 mg ONETIME ONE Administration Sodium Chloride 1,000 mls @ 999 mls/hr 11/15/16 07:22 11/15/16 07:36 Normal Saline IV 11/15/16 08:22 999 mls/hr STAT ONE Administration Iopamidol 50 ml 11/15/16 08:25 11/15/16 08:26 Isovue Multipack-370 (76%) IVPUSH 11/15/16 08:26 50 ml ONETIME STA Administration Morphine Sulfate 2 mg 11/15/16 07:22 11/15/16 07:37 Morphine IVPUSH 11/15/16 07:23 2 mg ONETIME ONE Administration Ondansetron HCl 4 mg 11/15/16 07:22 11/15/16 07:37 Zofran IVPUSH 11/15/16 07:23 4 mg ONETIME ONE Administration Departure - Departure Time of Disposition: 10:07 Disposition: Home, Self-Care 01 Condition: Good Clinical Impression: Chest wall pain, Third trimester Vomiting Qualifiers: Vomiting type: unspecified Vomiting Intractability: non-intractable Nausea presence: with nausea Qualified Code(s): R11.2 - Nausea with vomiting, unspecified - Discharge Information Referrals: Jean Marie Cardoza MD [Primary Care Provider] - Forms: ED Department Discharge Additional Instructions: The following information is given to patients seen in the emergency department who are being discharged to home. This information is to outline your options for follow-up care. We provide all patients seen in our emergency department with a follow-up referral. The need for follow-up, as well as the timing and circumstances, are variable depending upon the specifics of your emergency department visit. If you don't have a primary care physician on staff, we will provide you with a referral. We always advise you to contact your personal physician following an emergency department visit to inform them of the circumstance of the visit and for follow-up with them and/or the need for any referrals to a consulting specialist. The emergency department will also refer you to a specialist when appropriate. This referral assures that you have the opportunity for followup care with a specialist. All of these measure are taken in an effort to provide you with optimal care, which includes your followup. Under all circumstances we always encourage you to contact your private physician who remains a resource for coordinating your care. When calling for followup care, please make the office aware that this follow-up is from your recent emergency room visit. If for any reason you are refused follow-up, please contact the [facility] emergency department at and ask to speak to the emergency department charge nurse. [facility] [address] [address] Please continue to use her prescribed medications for pain and contact the clinic and for refills of your prescribed medications. Please use the Zofran you have been prescribed today for any nausea and vomiting. Please avoid fatty foods spicy foods caffeinated products and rich foods. Return to ER as needed as discussed. Please keep your appointment this week with Jo Ann Arriaza in the clinic. - My Orders Last 24 Hours: My Active Orders 11/15/16 07:21 Cardiac Monitoring [RC] . DIRECTED EKG Documentation Completion [RC] STAT Oxygen Therapy, ED [RC] ASDIRECTED Pulse Oximetry [RC] ASDIRECTED Ang Chest [CT] Stat Saline Lock Insert [OM.PC] Stat 11/15/16 07:22 Sodium Chloride 0.9% [Saline Flush] 10 ml FLUSH ASDIRECTED PRN Sodium Chloride 0.9% [Saline Flush] 2.5 ml FLUSH ASDIRECTED PRN 11/15/16 08:45 Abdomen Ltd [US] Stat - Assessment/Plan Last 24 Hours: My Active Orders 11/15/16 07:21 Cardiac Monitoring [RC] . DIRECTED EKG Documentation Completion [RC] STAT Oxygen Therapy, ED [RC] ASDIRECTED Pulse Oximetry [RC] ASDIRECTED Ang Chest [CT] Stat Saline Lock Insert [OM.PC] Stat 11/15/16 07:22 Sodium Chloride 0.9% [Saline Flush] 10 ml FLUSH ASDIRECTED PRN Sodium Chloride 0.9% [Saline Flush] 2.5 ml FLUSH ASDIRECTED PRN 11/15/16 08:45 Abdomen Ltd [US] Stat
[2016-11-15 07:42] LABS: CHLORIDE,CL 108 mmol/L (98-110); SODIUM,NA 137 mmol/L (136-146)
[2016-11-15] MEDS ORDERED: Iopamidol 755 MG/ML 500 ML Multipack Bottle IVPUSH STA (08:25)
[2016-11-15 10:35] VITALS: BP 131/89
--- NOTE | 2016-11-15 10:43 | PCM.SN ---
- Free Text/Narrative Note: Anesthesia Consult - Estimated DD 01/25/17 I was contacted 3 weeks ago to review this patients chart for delivery on or about January 25, 2017. Outside records were obtained from [facility] including operative reports and plain films. The patient also reports her spinal surgeon at [facility] told her she would have to have a GA . I was notified by ER staff that the patient was in our ER and requesting to talk with anesthesia. This patient has a significant history for posterior spinal for Right Thoracic and Left Lumbar idiopathic scoliosis correction and subsequent revision 8 months later after falling and significant hardware dislodgment. Allergies - NKDA Home RX - Methadone 40mg (This was recently increased from 30 daily) Percocet 10325 (3-4 Tabs daily schedule, she previously was on 15-20mg daily and this now 30-40mg daily) PNV PMH: Neuro - Chronic low back pain and documented idiopathic scoliosis (On exam minimal scarring is obvious as the patient has had extensive tattoo work to hide her scars, severe anxiety CV - Denies HTN (BP elevated during this visit, will have to rule out anxiety vs PIH), Denies murmur Pulm - Smoker x 10 years (Pre- 0.5 PPD, currently 3 cigs per day) GI - Occ. 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 The patient did have wound healing issues and partial wound dehiscence after her surgeries. This was management by wound therapy and did not require any additional surgery. Patient denies any anesthesia related complications with either procedure. She did receive multiple blood transfusions without any complications. Denies any family complications with anesthesia. After reviewing her films and talking with the patient extensively about her options it is felt that the patient the has two options: Labor without regional anesthesia for pain control or elective GETA . The patient understands that having a is probably the best course of action considering her condition at this time. The patient had a lot of concerns about GETA vs Attempted Regional Placement. I informed the patient that given the extent of her posterior spinal fusion and the amount of bone grafting that was done compounded with her fixed spinal position that attempted placement of spinal anesthesia could cause more harm than good in her situation. Risks included: failed placement, bleeding, infection, and the overall lack of ability for optimal positioning. GETA was explained as well as the risks and benefits. The patient was quite emotional throughout this whole discussion but understands. She told me "all of my doctors had told me this is how it would be" and "I was hoping something had changed since then". I believe GA will also be beneficial in helping to control the patients significant pain and anxiety issues intra-op. Type and Screen on day of surgery and verification of antibodies and availability of blood products. This case was discussed with Dr Gibbons and Dr Verdin who are in agreement with this plan.
--- NOTE | 2016-11-16 18:20 | CT ---
EXAM DATE: 11/15/16 PATIENT'S AGE: 26 Patient: MANE KUHN Facility: [place], [place] Site . Site : 1990 Study: CT Chest Angio [id number]/4/2017 8:32:11 AM Ordering Physician: Annie Merida Final Report: Indication: Chest pain. Comparison: None. Technique: 50 mL Isovue-370 IV contrast with pulmonary arterial phase imaging from lung apices to lung bases. Findings: Adequate bolus timing. No pulmonary embolism identified. Aortic caliber appears normal. Heart size is upper normal. Hiatus hernia. Moderate artifact from posterior scoliosis fixation hardware. Peripheral pulmonary vascularity has upper normal caliber. No focal airspace opacity. No evident effusion in the pleural space. Impression: 1. No pulmonary embolism. 2. No acute cardiopulmonary disease. 3. Small sliding hiatus hernia. 4. Scoliosis with posterior fixation hardware. Please note that all CT scans at this facility use dose modulation, iterative reconstruction, and/or weight-based dosing when appropriate to reduce radiation dose to as low as reasonably achievable. Dictated by Derek Patricia MD @ Nov 15 2016 8:40AM (Electronic Signature) Report Signed by Proxy. [facility]
--- NOTE | 2016-11-16 18:25 | US ---
EXAM DATE: 11/15/16 PATIENT'S AGE: 26 Patient: MANE KUHN Facility: [place], [place] Site . Site : 1990 Study: US Abdomen [id number]/4/2017 9:35:31 AM Ordering Physician: Annie Merida Final Report: INDICATION: Right upper quadrant abdomen pain and vomiting. TECHNIQUE: Ultrasound abdomen limited. Sonographic images of the right upper quadrant were obtained using luo-scale and color Doppler images. COMPARISON: None FINDINGS: LIVER: Normal in size and echotexture. No masses. No intrahepatic biliary dilatation. GALLBLADDER: No stones or sludge. Normal wall thickness. No pericholecystic fluid. COMMON BILE DUCT: 6 mm. PANCREAS: Normal. RIGHT KIDNEY: 10 cm. Normal echotexture and cortex. No masses, stones, or hydronephrosis. VASCULATURE: Proximal abdominal aorta and IVC are normal. IMPRESSION: Unremarkable right upper quadrant ultrasound. Dictated by Gilberto Mcleod MD @ 11/15/2016 9:48:33 AM Dictated by: Gilberto Mcleod MD @ 11/15/2016 09:48:38 (Electronic Signature) Report Signed by Proxy. [facility]
== END 2016-11-15 10:20 | disposition home or self-care (01) ==
LOC: MW.ED 07:00
DX: O21.2 Late vomiting of pregnancy (principal); O99.333 Smoking (tobacco) complicating pregnancy, third trimester; F17.210 Nicotine dependence, cigarettes, uncomplicated; R07.89 Other chest pain; Z3A.30 30 weeks gestation of pregnancy
CPT/HCPCS: 71275; 76705; 80053; 81001; 82150; 83690; 84484; 85025; 85610; 93005; 96361; 96374; 96375; 99285; J2270; J2405; J7040; Q9967; 99283